=== PATIENT | male | born 1970 | race Asian ===

== ENCOUNTER → 2017-07-14 | Outpatient (CLI) | payer OTHER ==
[2017-07-14 10:01] LABS: BASO % 0.3 %; BASO ABS # 0.02 K/uL (0-0.2); COMPLETE YES; EOS % 1.4 %; HEMATOCRIT 43.6 % (42-52); IG% 0.1 %; LYMPH % 37.9 %; LYMPH ABS # 2.74 K/uL (1.2-3.4); MEAN CELL VOLUME 91.2 fL (80-100); MEAN CORPUSCULAR HEMOGLOBIN 31.2 pg (25-34); MEAN CORPUSCULAR HGB CONC 34.2 g/dl (32-36); MEAN PLATELET VOLUME 10.6 fL (7.4-10.4); MONO % 6.6 %; NEUT % 53.7 %; PLATELET COUNT 229 K/uL (130-400); RED BLOOD COUNT 4.78 M/uL (4.7-6.1); WHITE BLOOD COUNT 7.23 K/uL (4.8-10.8)
[2017-07-14 10:36] LABS: ALT/SGPT 29 U/L (12-78); BLOOD UREA NITROGEN 18 mg/dl (7-18); BUN/CREATININE RATIO 19.4 (10-20); CALCIUM 8.9 mg/dl (8.5-10.1); CARBON DIOXIDE 28 mmol/L (21-32); CHLORIDE 104 mmol/L (98-107); CHOLESTEROL 184 mg/dl (0-200); CREATININE 0.95 mg/dl (0.60-1.40); GLUCOSE 96 mg/dl (70-99); POTASSIUM 3.6 mmol/L (3.5-5.1); SODIUM 140 mmol/L (136-145); TRIGLYCERIDES 162 mg/dl (0-150); VERY LOW DENSITY LIPOPROT CALC 32 mg/dl
[2017-07-14 10:39] LABS: ALB/GLOB RATIO 1.1 (0.9-2); ALKALINE PHOSPHATASE 78 U/L (45-117); AST/SGOT 15 U/L (15-37); CHOLESTEROL/HDL RATIO 3.9; HDL CHOLESTEROL 47 mg/dl; LDL CHOLESTEROL CALCULATED 105 mg/dl
== END | disposition home or self-care (01) ==
LOC: C.LAB 09:20
PROVIDERS: ATTEND Neuromusculoskeletal Medicine & OMM
DX: Z00.00 Encounter for general adult medical examination without abnormal findings (principal); E78.1 Pure hyperglyceridemia

== ENCOUNTER → 2017-07-30 | Outpatient (CLI) | payer OTHER ==
[2017-07-30 16:11] LABS: C-REACTIVE PROTEIN < 0.29 mg/dl (0-0.29); RHEUMATOID FACTOR < 10.0 U/mL (0-15); THYROID STIMULATING HORMONE 0.709 uIu/ml (0.300-4.500); URIC ACID 6.2 mg/dl (2.6-7.2)
[2017-07-30 17:21] LABS: LYME DISEASE AB IGM NEG (NEG)
[2017-07-30 17:24] LABS: LYME DISEASE AB IGG NEG (NEG)
== END | disposition home or self-care (01) ==
LOC: C.LAB 14:20
PROVIDERS: ATTEND Nurse Practitioner Family
DX: M79.641 Pain in right hand (principal)

== ENCOUNTER → 2017-09-03 | Outpatient (CLI) | payer OTHER ==
--- NOTE | 2017-09-03 18:01 | DIAGNOSTIC IMAGING REPORT ---
R HAND MIN 3 VIEWS ROUTINE CLINICAL HISTORY: Bilateral hand pain. COMPARISON: None FINDINGS: No fracture or osseous lesion is identified. No erosions are identified. There is mild joint space narrowing and osteophytosis within several articulations of the right hand, most pronounced within the DIP joint of the fourth finger. This suggests osteoarthritis. IMPRESSION: 1. No acute fracture. 2. 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 Electronically signed by: Rene Dinh M.D. 09/03/2017 6:00 PM Dictated Date/Time: 09/03/2017 5:58 PM
--- NOTE | 2017-09-03 18:02 | DIAGNOSTIC IMAGING REPORT ---
L HAND MIN 3 VIEWS ROUTINE CLINICAL HISTORY: Bilateral hand pain. COMPARISON: None FINDINGS: Alignment of the left hand is anatomic. No fracture or suspicious lesion is identified. No erosions are identified. Carpal bones are intact. Joint spaces are preserved. IMPRESSION: No significant abnormality of the left hand. Electronically signed by: Rene Dinh M.D. 09/03/2017 6:01 PM Dictated Date/Time: 09/03/2017 6:00 PM
== END | disposition home or self-care (01) ==
LOC: C.RAD 17:24
PROVIDERS: ATTEND Neuromusculoskeletal Medicine & OMM
DX: M19.041 Primary osteoarthritis, right hand (principal); M79.642 Pain in left hand